=== PATIENT | female | born 1955 | race American Indian/Alaskan Native ===

== ENCOUNTER 2018-01-09 06:17 | Day surgery (SDC) | payer BC ==
[2018-01-03 08:46] VITALS: BMI 34.0
[2018-01-09] MEDS ORDERED: Propofol 10 mg/ml Inj (20 ML) ONE (07:45)
[2018-01-09] MEDS ORDERED: Lidocaine 1% Inj (20ml) ONE (07:46)
[2018-01-09] MEDS ORDERED: Sodium Chloride 0.9% 1,000 ML IV SCH (08:30)
[2018-01-09 09:10] VITALS: BP 124/55; PULSE 49; RESP 20; TEMP 97.7; O2SAT 100
== END 2018-01-09 09:52 | disposition home or self-care (01) ==
LOC: ENDO 06:17
PROVIDERS: ATTEND Specialist
DX: D12.0 Benign neoplasm of cecum (principal); K57.30 Diverticulosis of large intestine without perforation or abscess without bleeding; K64.8 Other hemorrhoids
CPT/HCPCS: 45385; 88305; J2704; J7030

== ENCOUNTER 2018-05-08 11:47 | Emergency (ER) | payer BC ==
[2018-05-08 11:47] VITALS: BMI 34.0
[2018-05-08 12:00] VITALS: TEMP 98.1; O2SAT 97
[2018-05-08 12:20] VITALS: RESP 18
--- NOTE | 2018-05-08 13:04 | ED PDOC ---
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 Patient informs multiple visits to urologists for the past year and was prescribed medications with no improvement to symptoms. Patient worries her symptoms may be secondary to her history of hysterectomy prompting her to present to the Emergency department for medical evaluation. Patient states her hysterectomy was more than 5 years ago and she had children in the past. Patient denies any other associated somatic complaints. Patient denies any hematuria, dysuria, or back pain. Patient denies any fevers, chills, headache, dizziness, chest pain, shortness of breath, dyspnea on exertion, cough, abdominal pain, nausea, vomiting, diarrhea, neck pain, or any other complaints. PMD: Dr. Aguilar Time/Duration: > month Symptom Onset: Gradual Symptom Course: Unchanged Activities at Onset: Light Context: Home Past Medical History - Provider Review Nursing Documentation Reviewed: Yes - Infectious Disease Hx of Infectious Diseases: None - Tetanus Immunization Tetanus Immunization: Unknown - Cardiac Hx Cardiac Disorders: Yes Hx Hypertension: Yes - Pulmonary Hx Respiratory Disorders: No - Neurological Hx Neurological Disorder: Yes Hx Migraine: Yes - HEENT Hx HEENT Disorder: No - Renal Hx Renal Disorder: No - Endocrine/Metabolic Hx Endocrine Disorders: Yes Hx Hypothyroidism: Yes - Hematological/Oncological Hx Blood Disorders: No - Integumentary Hx Dermatological Disorder: Yes Hx Psoriasis: Yes - Musculoskeletal/Rheumatological Hx Musculoskeletal Disorders: Yes Hx Herniated Disk: Yes - Gastrointestinal Hx Gastrointestinal Disorders: Yes Hx Gastroesophageal Reflux: Yes - Genitourinary/Gynecological Hx Genitourinary Disorders: Yes - Psychiatric Hx Psychophysiologic Disorder: No Hx Substance Use: No - Surgical History Hx Hysterectomy: Yes - Anesthesia Hx Anesthesia Reactions: No Hx Malignant Hyperthermia: No - Suicidal Assessment Feels Threatened In Home Enviroment: No Family/Social History - Physician Review Nursing Documentation Reviewed: Yes Family/Social History: Unknown Family HX Smoking Status: Current Some Days Smoker Hx Alcohol Use: No Hx Substance Use: No Allergies/Home Meds Allergies/Adverse Reactions: Allergies No Known Allergies Allergy (Unverified 05/08/18 11:50) Home Medications: Home Meds Medication Instructions Recorded Confirmed Methimazole [Tapazole] 5 mg PO DAILY 01/03/18 05/08/18 Metoprolol Tartrate [Lopressor] 100 mg PO DAILY 01/03/18 05/08/18 Multivitamin [Multivitamins] 1 tab PO DAILY 01/03/18 05/08/18 Enalapril Maleate [Vasotec] 20 mg PO DAILY 05/08/18 05/08/18 Review of Systems - Physician Review All systems were reviewed & negative as marked: Yes - Review of Systems Constitutional: absent: Fevers Respiratory: absent: SOB, Cough Cardiovascular: absent: Chest Pain Gastrointestinal: absent: Abdominal Pain, Diarrhea, Nausea, Vomiting Genitourinary Female: Frequency. absent: Dysuria, Hematuria Musculoskeletal: absent: Back Pain, Neck Pain Neurological: absent: Headache, Dizziness Psychiatric: absent: Anxiety, Depression Physical Exam Vital Signs Reviewed: Yes Vital Signs Temp Pulse Resp BP Pulse Ox 05/08/18 12:13 98.1 F 57 L 18 137/76 97 05/08/18 11:52 98.1 F 57 L 16 137/76 97 Temperature: Afebrile Blood Pressure: Normal Pulse: Bradycardic Respiratory Rate: Normal Appearance: Positive for: Well-Appearing, Non-Toxic, Comfortable Pain Distress: None Mental Status: Positive for: Alert and Oriented X 3 - Systems Exam Head: Present: Atraumatic, Normocephalic Pupils: Present: PERRL Extroacular Muscles: Present: EOMI Conjunctiva: Present: Normal Mouth: Present: Moist Mucous Membranes Neck: Present: Normal Range of Motion Respiratory/Chest: Present: Clear to Auscultation, Good Air Exchange. No: Respiratory Distress, Accessory Muscle Use Cardiovascular: Present: Regular Rate and Rhythm, Normal S1, S2. No: Murmurs Abdomen: No: Tenderness, Distention, Peritoneal Signs Back: Present: Normal Inspection Upper Extremity: Present: Normal Inspection. No: Cyanosis, Edema Lower Extremity: Present: Normal Inspection. No: Edema Neurological: Present: GCS=15, CN II-XII Intact, Speech Normal Skin: Present: Warm, Dry, Normal Color. No: Rashes Psychiatric: Present: Alert, Oriented x 3, Normal Insight, Normal Concentration Medical Decision Making ED Course and Treatment: 05/08/18 12:45 Impression: 62 year old female presents to the Emergency department complaining of urinary urgency for past year. Plan: -- Urinalysis -- Urine Culture -- Reassess and disposition Prior Visits: Notes and results from previous visits were reviewed. Patient was last seen in the emergency department on Progress Notes: - Scribe Statement The provider has reviewed the documentation as recorded by the Scribe La Nena Cao. All medical record entries made by the Scribe were at my direction and personally dictated by me. I have reviewed the chart and agree that the record accurately reflects my personal performance of the history, physical exam, medical decision making, and the department course for this patient. I have also personally directed, reviewed, and agree with the discharge instructions and disposition. Disposition/Present on Arrival - Present on Arrival Any Indicators Present on Arrival: No History of DVT/PE: No History of Uncontrolled Diabetes: No Urinary Catheter: No History of Decub. Ulcer: No History Surgical Site Infection Following: None - Disposition Have Diagnosis and Disposition been Completed?: Yes Diagnosis: Urinary bladder incontinence Disposition: HOME/ ROUTINE Disposition Time: 13:30 Condition: GOOD Discharge Instructions (ExitCare): Urinary Incontinence Additional Instructions: CHASTITY OCHOA, thank you for letting us take care of you today. The emergency medical care you received today was directed at your acute symptoms. If you were prescribed any medication, please fill it and take as directed. It may take several days for your symptoms to resolve. Return to the Emergency Department if your symptoms worsen, do not improve, or if you have any other problems. Please contact your doctor or call one of the physicians/clinics you have been referred to that are listed on the Patient Visit Information form that is included in your discharge packet. Bring any paperwork you were given at discharge with you along with any medications you are taking to your follow up visit. Our treatment cannot replace ongoing medical care by a primary care provider outside of the emergency department. Thank you for allowing the [facility] team to be part of your care today. Follow up with the urologist you already have scheduled. Also follow up with a PHARMACEUTICAL OFFICER doctor. You may use the one listed here. Prescriptions: Mirabegron [Myrbetriq] 25 mg PO DAILY #14 [id number] Referrals: Raffi Sterling MD [Staff Provider] - Follow up with primary Forms: [employer] ([place])
[2018-05-08 13:11] LABS: URINE BILIRUBIN NEGATIVE (NEGATIVE); URINE BLOOD NEGATIVE (NEGATIVE); URINE GLUCOSE (UA) NEGATIVE (NEGATIVE); URINE LEUKOCYTE ESTERASE NEGATIVE Leu/uL (NEGATIVE); URINE PROTEIN NEGATIVE mg/dL (<30 mg/dL); URINE UROBILINOGEN 0.2 E.U./dL (<1 E.U./dL)
[2018-05-08 13:14] LABS: URINE APPEARANCE CLEAR (CLEAR); URINE COLOR YELLOW (YELLOW)
[2018-05-08 14:19] VITALS: BP 135/71; PULSE 59
== END 2018-05-08 14:27 | disposition home or self-care (01) ==
LOC: ED 11:47
DX: R32 Unspecified urinary incontinence (principal)

== ENCOUNTER 2018-08-01 16:08 | Outpatient (CLI) | payer BC | END 2018-08-01 16:09 | disposition home or self-care (01) | LOC: RAD 16:08 ==